=== PATIENT | female | born 1965 | race Caucasian/White ===

== ENCOUNTER → 2016-12-20 | Outpatient (CLI) | payer BC | LOC: MC.RAD 10:57 | DX: Z12.31 Encounter for screening mammogram for malignant neoplasm of breast (principal) ==

== ENCOUNTER → 2019-08-16 | Outpatient (CLI) | payer BC | LOC: MC.RAD 12:28 | DX: Z12.31 Encounter for screening mammogram for malignant neoplasm of breast (principal); N63.21 Unspecified lump in the left breast, upper outer quadrant; N63.10 Unspecified lump in the right breast, unspecified quadrant; Z98.82 Breast implant status ==

== ENCOUNTER → 2019-08-23 | Outpatient (CLI) | payer BC | LOC: MC.RAD 13:14 | DX: N63.10 Unspecified lump in the right breast, unspecified quadrant (principal) ==

== ENCOUNTER → 2019-09-26 | Outpatient (CLI) | payer BC | LOC: ZCOL.LAB 08:06 | DX: J02.9 Acute pharyngitis, unspecified (principal); R52 Pain, unspecified; Z20.828 Contact with and (suspected) exposure to other viral communicable diseases ==

== ENCOUNTER → 2020-04-02 | Outpatient (CLI) | payer BC | LOC: MC.RAD 14:00 | DX: N63.10 Unspecified lump in the right breast, unspecified quadrant (principal) ==

== ENCOUNTER 2020-06-25 08:32 | Day surgery (SDC) | payer BC ==
[~2020-06-25] VITALS: Ht 167.6 cm; Wt 85.5 kg
[2020-06-25 09:52] VITALS: BP 104/77; PULSE 61; TEMP 98.2
[2020-06-25 10:05] VITALS: BP 113/80; PULSE 74
[2020-06-25 10:20] VITALS: BP 114/83; PULSE 72
[2020-06-25 10:35] VITALS: BP 118/52; PULSE 63
== END 2020-06-25 10:55 | disposition home or self-care (01) ==
LOC: SDCO 08:32
DX: Z12.11 Encounter for screening for malignant neoplasm of colon (principal); K62.89 Other specified diseases of anus and rectum; Z20.822 Contact with and (suspected) exposure to COVID-19; Z83.3 Family history of diabetes mellitus; Z82.49 Family history of ischemic heart disease and other diseases of the circulatory system
CPT/HCPCS: J2704

== ENCOUNTER → 2020-10-08 | Outpatient (CLI) | payer BC | LOC: MC.RAD 12:57 | DX: N64.89 Other specified disorders of breast (principal); Z98.82 Breast implant status ==

== ENCOUNTER → 2022-02-02 | Outpatient (CLI) | payer BC | LOC: MC.RAD 09:45 | DX: Z12.31 Encounter for screening mammogram for malignant neoplasm of breast (principal); Z98.82 Breast implant status ==